=== PATIENT | female | born 2000 | race Native Hawaiian/Other Pacific Islander ===

== ENCOUNTER 2023-06-19 10:13 | Emergency (ER) | payer OTHER, SELFPAY ==
[~2023-06-19] VITALS: Ht 160 cm; Wt 123.6 kg
[~2023-06-19 10:13] MED LIST: GABA-1171 PO; METH-1164 PO; OMEP40CA4 PO; ONDA4TAB6 PO; SIME80TA16 PO; TRAM50TA2 PO; actigall PO
[2023-06-19] MEDS ORDERED: NS 1,000 ML IV ONE (11:25)
[2023-06-19] MEDS ORDERED: ONDANSETRON 4MG 2ML VIAL IV ONE (11:25)
[2023-06-19 12:09] LABS: BASO % 0.3 % (0.0-1.0); EOS # 0.1 10^3/uL (0.0-0.5); EOS % 1.2 % (0.0-3.0); HEMATOCRIT 42.1 % (36.0-47.0); HEMOGLOBIN 13.8 g/dl (12.0-15.5); LYMPH # 1.8 10^3/uL (1.5-5.0); LYMPH % 27.6 % (24.0-44.0); MEAN CORPUSCULAR HGB CONC 32.8 g/dl (32.0-36.5); MEAN CORPUSCULAR VOLUME 91.5 fl (80.0-96.0); MONO # 0.3 10^3/uL (0.0-0.8); MONO % 4.7 % (2.0-8.0); NEUTROPHILS # 4.4 10^3/uL (1.5-8.5); PLATELET COUNT, AUTOMATED 219 10^3/uL (150-450); WHITE BLOOD COUNT 6.6 10^3/uL (4.0-10.0)
[2023-06-19 12:43] LABS: ALKALINE PHOSPHATASE 80 U/L (46-116); ALT/SGPT 33 U/L (7.0-40); AST/SGOT 22 U/L (<34); BILIRUBIN,DIRECT 0.2 MG/DL (<0.4); BILIRUBIN,TOTAL 0.5 MG/DL (0.3-1.2); BLOOD UREA NITROGEN 8 MG/DL (9-23); CALCIUM LEVEL 9.4 MG/DL (8.5-10.1); CARBON DIOXIDE LEVEL 26 MMOL/L (20-31); CHLORIDE LEVEL 107 MMOL/L (98-107); CREATININE FOR GFR 0.56 MG/DL (0.55-1.30); GLUCOSE, FASTING 94 MG/DL (60-100); POTASSIUM SERUM 4.1 MMOL/L (3.5-5.1); SODIUM LEVEL 140 MMOL/L (136-145); TOTAL PROTEIN 7.1 G/DL (5.7-8.2)
[2023-06-19 12:50] LABS: RSV AMPLIFICATION NEGATIVE (NEGATIVE)
[2023-06-19 12:54] LABS: HCG, SERUM QUALITATIVE NEGATIVE (NEGATIVE)
[2023-06-19] MEDS ORDERED: ACETAMINOPHEN 325 MG TAB PO ONE (14:05)
[2023-06-19 14:30] VITALS: BP 125/71; TEMP 97.2; O2SAT 100
== END 2023-06-19 14:41 | disposition home or self-care (01) ==
LOC: M ED 10:13
DX: R11.2 Nausea with vomiting, unspecified (principal); R51.9 Headache, unspecified; S39.012A Strain of muscle, fascia and tendon of lower back, initial encounter; E86.0 Dehydration; Z79.84 Long term (current) use of oral hypoglycemic drugs; Z88.8 Allergy status to other drugs, medicaments and biological substances; Z79.899 Other long term (current) drug therapy
CPT/HCPCS: 80048; 80076; 81001; 84703; 85025; 87086; 87631; 96361; 96374; 99284; J2405

== ENCOUNTER 2023-08-27 05:32 | Emergency (ER) | payer OTHER ==
[~2023-08-27] VITALS: Ht 160 cm; Wt 118.4 kg
[2023-08-27 07:04] LABS: BASO % 0.4 % (0.0-1.0); EOS # 0.1 10^3/uL (0.0-0.5); EOS % 2.5 % (0.0-3.0); HEMATOCRIT 39.7 % (36.0-47.0); HEMOGLOBIN 13.3 g/dl (12.0-15.5); LYMPH # 2.1 10^3/uL (1.5-5.0); MEAN CORPUSCULAR HEMOGLOBIN 30.5 pg (27.0-33.0); MEAN CORPUSCULAR HGB CONC 33.5 g/dl (32.0-36.5); MEAN CORPUSCULAR VOLUME 91.1 fl (80.0-96.0); MONO # 0.3 10^3/uL (0.0-0.8); MONO % 5.2 % (2.0-8.0); NEUTROPHILS # 2.3 10^3/uL (1.5-8.5); NEUTROPHILS % 47.7 % (36.0-66.0); PLATELET COUNT, AUTOMATED 219 10^3/uL (150-450); RED BLOOD COUNT 4.36 10^6/uL (4.00-5.40); WHITE BLOOD COUNT 4.8 10^3/uL (4.0-10.0)
[2023-08-27] MEDS ORDERED: ONDANSETRON 4MG 2ML VIAL IV ONE (07:15)
[2023-08-27] MEDS ORDERED: MORPHINE 2 MG/ML 1ML VIAL IV ONE (07:15)
[2023-08-27] MEDS ORDERED: NS 1,000 ML IV ONE (07:15)
[2023-08-27 07:35] LABS: RSV AMPLIFICATION NEGATIVE (NEGATIVE)
[2023-08-27 07:36] LABS: ALBUMIN 3.6 G/DL (3.2-5.2); BILIRUBIN,DIRECT 0.2 MG/DL (<0.4); BILIRUBIN,TOTAL 0.5 MG/DL (0.3-1.2); TOTAL PROTEIN 6.7 G/DL (5.7-8.2)
[2023-08-27 07:56] LABS: HCG, SERUM QUALITATIVE NEGATIVE (NEGATIVE)
[2023-08-27] MEDS ORDERED: ISOVUE-370 76% 100ML VIAL As Ordered ONE (08:16)
[2023-08-27] MEDS ORDERED: ONDA4TAB6 PO (09:10)
[2023-08-27 10:00] VITALS: BP 114/80; TEMP 97.4; O2SAT 94
== END 2023-08-27 10:04 | disposition home or self-care (01) ==
LOC: M ED 05:32
DX: K92.0 Hematemesis (principal); R05.9 Cough, unspecified; Z98.84 Bariatric surgery status; Z80.0 Family history of malignant neoplasm of digestive organs; Z88.6 Allergy status to analgesic agent
CPT/HCPCS: 71046; 74177; 80047; 80076; 83690; 84702; 84703; 85025; 87631; 93041; 96361; 96374; 96375; 99284; J2405; Q9967

== ENCOUNTER → 2023-10-05 | Outpatient (REF) ==
[2023-10-05 11:57] LABS: RSV AMPLIFICATION NEGATIVE (NEGATIVE)
== END ==
LOC: M EMP 10:04
PROVIDERS: ATTEND Family Medicine
DX: R09.89 Other specified symptoms and signs involving the circulatory and respiratory systems (principal)

== ENCOUNTER → 2023-12-26 | Outpatient (CLI) | payer OTHER ==
[~2023-12-26] MED LIST changes: +E-Z-GAS II EFFERVESCENT PACKET (SODIUM BICARB./CITRIC ACID/SIMETHICONE) As Ordered ONE; +E-Z-HD 98% w/w 340GM SUSP BTL As Ordered ONE; +E-Z-PAQUE 96% w/w SUSP 176GM BTL As Ordered ONE
== END ==
LOC: M RAD 10:24
PROVIDERS: ATTEND Registered Nurse
DX: Z98.84 Bariatric surgery status (principal)